=== PATIENT | male | born 1980 | race Caucasian/White ===

== ENCOUNTER 2025-10-17 19:20 | Emergency (ER) | payer OTHER ==
[2025-10-17 20:20] LABS: Glucose, Urine (Dipstick) Negative (Negative); Leukocyte Large (Negative); Protein, Urine (Dipstick) > or equal to 300 mg/dL (Neg-Trace); Specific Gravity, Urine 1.025 (1.005-1.030)
[2025-10-17 20:21] LABS: Bacteria/HPF 3+ HPF (None Seen); CAUTI Indications for Culture Pelvic or flank pain; RBC/HPF Greater than 50 HPF (0-3); WBC/HPF Greater than 50 HPF (0-3)
[2025-10-17 20:22] LABS: Urine Culture Reflex Yes Yes
[2025-10-17] MEDS ORDERED: Lidocaine 1% PF 5 ML VIAL ONE (20:42)
[2025-10-17] MEDS ORDERED: cefTRIAXone (ROCEPHIN) 1 GM VIAL ONE (20:43)
[2025-10-18 21:37] LABS: Chlam.trachomatis by PCR,Urine Not Detected (NotDetected); GC N.gonorrhoeae PCR,UrineVOID Not Detected (NotDetected)
== END 2025-10-17 21:09 | disposition home or self-care (01) ==
LOC: MADERS 19:20
DX: N39.0 Urinary tract infection, site not specified (principal); E11.9 Type 2 diabetes mellitus without complications; E78.00 Pure hypercholesterolemia, unspecified; I10 Essential (primary) hypertension; Z79.84 Long term (current) use of oral hypoglycemic drugs; Z79.899 Other long term (current) drug therapy
CPT/HCPCS: 74176; 81001; 87077; 87086; 87491; 87591; 96372; J0696